=== PATIENT | male | born 1950 | race Caucasian/White ===

== ENCOUNTER 2017-03-06 08:35 | Day surgery (SDC) | payer OTHER ==
[~2017-03-06] VITALS: Ht 165.1 cm; Wt 90.7 kg
[2017-03-06] VITALS (25 sets, daily range): BP systolic 115–156; BP diastolic 66–99; PULSE 56–88; RESP 12–27; Ht 165.1 cm; Wt 90.7 kg
[~2017-03-06 08:35] MED LIST: ADVIL; ASPI-481; METO-448 PO; OMEG-135 PO; PRAS10TA6 PO; ROSU40TA35 PO; VALS1TAB65; Valerian PO
[2017-03-06] MEDS ORDERED: METO-448 PO (08:58)
[2017-03-06] MEDS ORDERED: ISOS120T15 PO (09:00)
[2017-03-06] MEDS ORDERED: PRAS10TA6 PO (09:00)
[2017-03-06] MEDS ORDERED: ERGO500037 PO (09:01)
[2017-03-06] MEDS ORDERED: ICOS1CAP PO (09:03)
[2017-03-06] MEDS ORDERED: DICL100G37 TOP (09:03)
[2017-03-06] MEDS ORDERED: VALS320T11 PO (09:04)
[2017-03-06] MEDS ORDERED: ASPI-664 PO (09:04)
[2017-03-06] MEDS ORDERED: CRES10 PO (09:04)
[2017-03-06] MEDS ORDERED: NICO1PAT19 TD (09:07)
[2017-03-06] MEDS ORDERED: UBID1CAP25 PO (09:07)
[2017-03-06 09:20] LABS: ADD SCAN DIFF NO
[2017-03-06 09:26] LABS: BASOPHILS % 0.3 % (0.0-2.0); EOSINOPHILS # 0.3 10^3/ul (0.0-0.5); EOSINOPHILS % 3.2 % (0.0-7.0); HEMATOCRIT 39.5 % (42.0-52.0); HEMOGLOBIN 13.9 g/dl (14.0-18.0); LYMPHOCYTES # 3.7 10^3/ul (0.8-2.9); LYMPHOCYTES % 47.1 % (15.0-51.0); MEAN CORPUSCULAR HEMOGLOBIN 32.1 pg (29.0-33.0); MEAN CORPUSCULAR HGB CONC 35.2 g/dl (32.0-37.0); MEAN CORPUSCULAR VOLUME 91.2 fl (82.0-101.0); MEAN PLATELET VOLUME 9.5 fl (7.4-10.4); MONOCYTE # 0.6 10^3/ul (0.3-0.9); MONOCYTES % 7.1 % (0.0-11.0); NEUTROPHIL # 3.3 10^3/ul (1.6-7.5); PLATELET COUNT 247 10^3/UL (140-415); RED BLOOD COUNT 4.33 10^6/ul (4.70-6.10); RED CELL DISTRIBUTION WIDTH 13.1 % (11.5-14.5); WHITE BLOOD COUNT 7.9 10^3/ul (4.8-10.8)
--- NOTE | 2017-03-06 09:30 | RADRPT ---
PROCEDURE: XR Chest. CLINICAL INDICATION: Chest pain , preoperative TECHNIQUE: Single frontal view of the chest was obtained COMPARISON: 06/16/2012 FINDINGS: The heart is enlarged. The thoracic aorta is calcified. The lungs are clear. There is no pleural effusion or pneumothorax. RPTAT: AA IMPRESSION: Mild cardiomegaly. Calcified aorta consistent with atherosclerotic disease. .Emmett Perez MD, MD Date Time Electronically viewed and signed by .Emmett Perez MD, on 03/06/2017 09:29 .S/
[2017-03-06 09:38] LABS: INR 0.94; PROTIME 12.6 Sec (12.2-14.2)
[2017-03-06 09:39] LABS: PARTIAL THROMBOPLASTIN TIME 27.8 Sec (25.0-35.0)
[2017-03-06 09:40] LABS: ALBUMIN 4.6 g/dl (3.3-4.9); ALBUMIN/GLOBULIN RATIO 2.09; BILIRUBIN,INDIRECT 0.2 mg/dl (0-1.1); BILIRUBIN,TOTAL 0.2 mg/dl (0.2-1.3); TOTAL PROTEIN 6.8 g/dl (6.1-8.1)
[2017-03-06 09:49] LABS: CALCIUM 9.1 mg/dl (8.4-10.2); CREATININE 0.83 mg/dl (0.61-1.24); POTASSIUM 3.9 mmol/L (3.5-5.1)
[2017-03-06] MEDS ORDERED: HEPARIN 1000 UNITS/ML 10 ML INJ ONE (10:01)
[2017-03-06] MEDS ORDERED: FENTAnyl 50 MCG/ML VIAL ONE (10:01)
[2017-03-06] MEDS ORDERED: MIDAZOLAM 1 MG/ML 2 ML INJ ONE (10:01)
[2017-03-06] MEDS ORDERED: LIDOCAINE 1% (MDV) 20 ML INJ ONE (10:01)
[2017-03-06] MEDS ORDERED: VERAPAMIL 5 MG INJ ONE (10:01)
[2017-03-06] MEDS ORDERED: NITROGLYCERIN (IC) 100 MCG/ML INJ ONE (10:01)
[2017-03-06] MEDS ORDERED: IODIXANOL LOCM 100 ML BTL ONE ×4 (10:01→11:52)
[2017-03-06] MEDS ORDERED: IOHEXOL 350MG/ML 50 ML BTL ONE (10:55)
[2017-03-06] MEDS ORDERED: PRASUGREL HYDROCHLORIDE 10 MG TABLET PO ONE (12:06)
[2017-03-06] MEDS ORDERED: ASPIRIN 325 MG TAB ONE (12:11)
[2017-03-06] MEDS ORDERED: SOD CHLORIDE 0.9% 1,000 ML IV SCH (12:12)
[2017-03-06] MEDS ORDERED: ONDANSETRON 4 MG INJ IV PRN (12:30)
[2017-03-06] MEDS ORDERED: morphine 2 MG INJ IV PRN (12:30)
[2017-03-06] MEDS ORDERED: ACETAMINOPHEN 325 MG TAB PO PRN (12:30)
[2017-03-06] MEDS ORDERED: ZOLPIDEM 5 MG TAB PO PRN (12:30)
[2017-03-06] MEDS ORDERED: AL HYDROX/MG HYDROX/SIMETH 30 ML CUP PO PRN (12:30)
[2017-03-06] MEDS ORDERED: OXYCODONE/ACETAMINOPHEN (5/325) TAB PO PRN (12:30)
[2017-03-06] MEDS ORDERED: DIAZEPAM 2 MG TAB PO PRN (12:30)
--- NOTE | 2017-03-06 12:48 | CARRPT ---
DATE OF PROCEDURE: 03/06/2017 TYPE OF PROCEDURE: 1. Left heart catheterization. 2. Coronary angiography. 3. Measurement of left ventricular end diastolic pressure. 4. Percutaneous transluminal coronary angioplasty with placement of Resolute Integrity drug-eluting stent 3.0 x 34 mm to proximal LAD. 5. Percutaneous transluminal coronary angioplasty with placement of Resolute Integrity drug-eluting stent 3.0 x 12 mm to mid right coronary artery. ATTENDING PHYSICIAN: Mateo Foote MD REFERRING PHYSICIAN: Dr. Bobby Guerrero. INDICATION: Chest pain with positive stress test findings. BRIEF HISTORY: Mr. Brooke is a 67-year-old male with history of hypertension, dyslipidemia, coron karen artery disease who initially presented with complaints of substernal chest pain. The patient lucas bsequently had a cardiac stress test revealing positive anterior and inferior ischemia. Given these findings, the patient was referred for and presents today in order to undergo left heart catheteriz ation to assess for the possibility of significant obstructive coronary artery disease lending to sy mptoms of chest pain and subsequent positive stress test findings. PROCEDURE: After informed consent was obtained, the patient was brought to the [facility] cardiac catheterization lab where his right radial area was prepped and draped in usual tri rile fashion. Lidocaine 2% was instilled into the radial aortic area in order to achieve adequate l ocal anesthesia. With modified Seldinger technique, the radial artery was cannulated and a 6-British arterial sheath was placed. A 6-British JL3 catheter was used to cannulate the LAD ostium. With co ntrast injection, multiple views of the LAD were obtained. JL3 was removed and a JL3.5 was used to cannulate the separate ostia of the circumflex after which contrast injection, multiple views of the circumflex vessel was removed and a JR4 was used to cannulate the right coronary arterial ostium. With contrast injection, multiple views of the right coronary arterial system obtained. JR4 was rem daisy over a guidewire, and at this time we moved directly into an interventional procedure. The pat ient was given additional 3000 units of heparin in addition to the 5000 he had received during the radial cocktail along with nitroglycerin and verapamil. Subsequently, at this time, the patient had an XB LAD3 guide was used to cannulate the LAD ostium. A 0.014 balanced ____guidewire was passed d istal to the lesion. The lesion was pretreated with a 2.5 x 12 mm balloon throughout the length of the lesion and then this was removed and was stented with a 3.0 x 34 mm drug-eluting stent deployed at 16 atmospheres, post-dilated with the stent delivery system up to 18 atmospheres. Stent delivery system was removed and a noncompliant 3.5 x 12 mm balloon ____post-dilate the LAD in the mid portio n up to 14 to 16 atmospheres. This was removed and a followup angiogram was obtained revealing exce llent result, deployment of stent, KIRSTEN 3 flow throughout the vessel and no signs of complication in cluding perforation or dissection, a very mild step down at the distal end of the stent. Subsequent ly, at this time, this guidewire was removed and another ACT was checked, returning within normal li mits and a Tutu Right Guide was used to cannulate the right coronary arterial ostium. A 0.014 b alanced ____ guidewire was passed distal to the lesion. We attempted to pass a stent over this wire unsuccessfully. Subsequently, a second wire was added to the ankur wire and over this ankur wire, we were able to now pass a 3.0 x 12 mm drug-eluting stent deployed within the lesion up to 18 atmosp heres, post-dilating with the stent delivery system up to 20 atmospheres. Stent delivery system was removed. Followup angiogram was obtained revealing excellent result with deployment of the stent, KIRSTEN 3 flow throughout the vessel and no signs of complication, including perforation or dissection. Subsequently, at this time, the interventional guidewires and guide were removed. The patient had had a left end diastolic pressure previously measured and assessment of aortic valve gradient. The patient had his sheath removed. TR band applied. This completed the procedure. There were no not ed complications. FINDINGS: 1. CORONARY ANGIOGRAPHY: The LAD proximally is a 3.5 mm vessel. In its midportion, has a long tub ular lesion up to 80 to 90%. In the mid distal portions, there is another lesion just at the bifurc ation approximately 50%. The circumflex arises from a separate ostium and approximately a 3.5 mm ve ssel in its mid portion is very ectatic and has a stenosis up to approximately 50%. There is a prox imal branching and mid branching obtuse marginals each sub 2 mm vessels, with no significant focal s tenoses. The right coronary artery proximally is a 3.5 mm vessel and is ectatic and just after its takeoff has an ostial 30% stenosis and then in its mid distal portions has a very focal approximatel y 80 to 90% stenosis. It is a dominant vessel and gives off a very small PDA sub 2 mm, no significa nt focal stenoses. Distally, the circumflex is a codominant vessel and gives off a left sided PDA 2 .5 mm with no significant focal stenoses. 2. Measurement of left ventricular end diastolic pressure of 26. PTCA and stent placement: Prior to PTCA and stent placement in the LAD, there was a long tubular 80 to 90% stenosis. Post-PTCA and stent placement, there was no residual stenosis, KIRSTEN 3 flow throug hout the vessel and no signs of complication including perforation or dissection and very mild step down distally in the stent. It is additionally noted that there was a diagonal that bifurcates just at the proximal portion of the stent that remained patent. PTCA and stent placed in the right coronary artery. Prior to PTCA and stent placement of the right coronary artery , the patient had a very focal 80% to 90% stenosis. Post-PTCA and stent placement, the patient had no residual stenosis in this region, KIRSTEN 3 flow throughout the vessel and no signs of complication including perforation or dissection and a mild step down at the distal end of the st ent. TOTAL FLUOROSCOPY TIME: 32 minutes. TOTAL CONTRAST: 240 mL. IMPRESSION: 1. Two-vessel obstructive coronary artery disease involving a long tubular left anterior descending lesion and a focal right coronary lesion, status post successful percutaneous transluminal coronary angioplasty and stent placement x2, one to LAD 3.0 x 35 mm 1 to right coronary artery, 3.0 x 12 mm. 2. Elevated left heart filling pressures. 3. No significant aortic stenosis by gradient. RECOMMENDATIONS: 1. At this time, we will reload patient with his baseline Effient and continue Effient x1 year. 2. Aspirin 325 mg 1 tab p.o. daily indefinitely. 3. Maximize medical management. 4. Aggressive risk factor reduction. 5. Patient will be admitted to the ICU for post-intervention observation and continued management o f presenting symptoms with probable discharge the following day. Dictated By: MATEO HEMPHILL/ROSA ELENA Conf#: [id number] DID#: [id number] CC: BOBBY GUERRERO MD;*[facility]*
[2017-03-06] MEDS ORDERED: METOPROLOL 25 MG TAB PO SCH (21:00)
[2017-03-06] MEDS ORDERED: ATORVASTATIN 40 MG TAB PO SCH (21:00)
--- NOTE | 2017-03-07 01:06 | HP ---
DATE OF ADMISSION: 03/06/2017 CHIEF COMPLAINT AND HISTORY OF PRESENT ILLNESS: The patient is a 67-year-old gentleman with a histo ry of hypertension, dyslipidemia, was seen by Dr. Foote' group as an outpatient. The patient had chest pain, and workup included nuclear stress test which was abnormal. The patient had anterior an d inferior ischemia on cardiac stress test. The patient was brought into hospital today and underwe nt left heart catheterization and underwent PCI with drug-eluting stent to proximal LAD and to mid r ight coronary artery. The patient post cath was chest pain free, did not have any shortness of lizette th. The patient did not have abdominal pain. No reported leg edema. No reported bleeding from any site. The right wrist area did not have any ecchymosis. The cardiac cath was performed from right radial artery. The patient did not have any recent fever or chills. No reported headache, dizzine ss or syncope. REVIEW OF SYSTEMS: Rest of the review of systems was unremarkable. PAST MEDICAL HISTORY: As stated above. The patient has history of non-ST elevation RI in 2010 and underwent PCI/PTCA to proximal and mid RCA and stenting in 2010. ALLERGIES: NONE. SOCIAL HISTORY: The patient is chronic smoker, has been smoking for more than 30 years. Drinks alc ohol socially. FAMILY HISTORY: Father at age 40, history of coronary artery disease with history of RI. Moth er from breast cancer at age 65. PHYSICAL EXAMINATION: GENERAL: The patient is conscious, awake, alert. VITAL SIGNS: Temperature 98.4, pulse 63, respirations 16, blood pressure 124/79, O2 saturation 98% on room air. HEENT: Conjunctivae and lids are normal. Oropharynx clear. NECK: Supple. No mass, no thyromegaly. CHEST: Clear. CARDIOVASCULAR: S1, S2 normal. No murmur. ABDOMEN: Soft, nondistended, nontender. EXTREMITIES: No leg edema. NEUROLOGIC: The patient is awake, alert, fairly oriented with no gross focal deficit. LABORATORY DATA: WBC 7.9, hemoglobin 13.9, platelets 247. Sodium 137, potassium 3.9, BUN 14, creat inine 0.8, glucose 93, AST 32, ALT 67, alkaline phosphatase 43. IMPRESSION: 1. Coronary artery disease, status post percutaneous coronary intervention with drug-eluting stenti ng of proximal left anterior descending and mid right coronary artery. 2. Hypertension. 3. Dyslipidemia. PLAN: The patient will be admitted in ICU and will be continued on Effient, Imdur, metoprolol, Shekhar tor, Diovan, aspirin. The patient will be monitored in ICU overnight. Further recommendations will depend on patient's hospital course and recommendations from Dr. Foote. The patient has also bee n started on nicotine patch. Dictated By: PHYLICIA LAZCANO/ROSA ELENA Conf#: [id number] DID#: [id number]
--- NOTE | 2017-03-07 04:19 | DS ---
DATE OF ADMISSION: 03/06/2017 DATE OF DISCHARGE: 03/06/2017 The patient left against medical advice. REASON FOR ADMISSION: The patient is a 67-year-old gentleman with a history of known coronary arter y disease, history of PCI in the past, hypertension, dyslipidemia, nicotine abuse, recently underwen t nuclear stress test as an outpatient which was positive for ischemia. The patient was brought int o the hospital today and underwent PCI of LAD and RCA with drug-eluting stent, as described above, claudia Foote. The patient was admitted in ICU for further care. The patient, after a few hours, d ecided to leave against medical advice. I explained to him with the help of a bar back that he sh ould not leave against medical advice due to recent PCI and that he needs to be monitored in ICU; ho wever, he still wanted to leave against medical advice. MEDICATIONS: I strongly advised him to continue all of his medication as before including 1. Aspirin. 2. Effient. 3. Metoprolol. 4. Crestor. 5. Valsartan. FOLLOWUP: The patient has been advised to follow up with Dr. Foote as well as primary care physic epi within the next few days. The patient, at the time of leaving against medical advice, was chest pain free and had stable vital signs. The right wrist area did not have any ecchymoses, and the pa tient did not have any weakness or numbness. The patient was, in fact, ambulating in the room witho ut any symptoms. VITAL SIGNS: At the time of the patient leaving against medical advice revealed a heart rate of 64, blood pressure 115/83, O2 saturation 97% on room air. Dictated By: PHYLICIA LAZCANO/ROSA ELENA Conf#: [id number] DID#: [id number]
[2017-03-07] MEDS ORDERED: ISOSORBIDE MONONITRATE(SR)60 MG TAB PO SCH ×2 (09:00)
[2017-03-07] MEDS ORDERED: ASPIRIN (EC) 325 MG TAB PO SCH (09:00)
[2017-03-07] MEDS ORDERED: PRASUGREL HYDROCHLORIDE 10 MG TABLET PO SCH (09:00)
[2017-03-07] MEDS ORDERED: VALSARTAN 160 MG TAB PO SCH (09:00)
[2017-03-07] MEDS ORDERED: NICOTINE (7 MG/24 HR) PATCH TRANSDERM SCH (09:00)
--- NOTE | 2017-03-07 17:42 | RADRPT ---
Vent Rate: 52 bpm RR Interval: 0 msec MO Interval: 184 msec QRS Duration: 90 msec QT Interval: 448 msec QTC Interval: 416 msec P-R-T [place]: 59 - 61 - 62 degrees Sinus bradycardia Otherwise normal ECG Electronically Signed By: Raoul Stoner [id number]
--- NOTE | 2017-03-07 17:42 | RADRPT ---
Vent Rate: 56 bpm RR Interval: 0 msec VA Interval: 196 msec QRS Duration: 90 msec QT Interval: 440 msec QTC Interval: 424 msec P-R-T [place]: 63 - 59 - 43 degrees Sinus bradycardia Otherwise normal ECG Electronically Signed By: Raoul Stoner [id number]
== END 2017-03-06 19:25 | disposition left against medical advice (07) ==
LOC: SDS 08:35 → ICU 12:39 → SDS 19:25
PROVIDERS: ATTEND Internal Medicine
DX: I25.10 Atherosclerotic heart disease of native coronary artery without angina pectoris (principal); I10 Essential (primary) hypertension; E78.5 Hyperlipidemia, unspecified; R94.31 Abnormal electrocardiogram [ECG] [EKG]
CPT/HCPCS: 71010; 80053; 80061; 85025; 85610; 85730; 93005; 93458; C1725; C1769; C1876; C1887; C9600; C9601; J1644; J2250; J2270; J3010; Q9967; Z7610